=== PATIENT | female | born 1950 | race Caucasian/White ===

== ENCOUNTER 2016-09-15 10:15 | Emergency (ER) | payer BC ==
[2016-09-15 10:52] VITALS: BP 157/87
--- NOTE | 2016-09-15 16:29 | ER ---
HISTORY OF PRESENT ILLNESS: A 66-year-old lady here with complaints of injuring her right shoulder and right hip when she fell last night. She was outside on cement, walking her dog when she just tripped and fell on the cement. She scraped her knee, but she feels her knee is doing fine. Her right hip and right shoulder have been painful and it got worse overnight. The patient does take Ultram occasionally for arthritis-type pain, she has taken a couple of doses, but does not feel has helped a lot. She states she can still walk with pain and she has been able to do some activities with her shoulder, but it is painful. She is worried about a fracture. OBJECTIVE: GENERAL APPEARANCE: The patient is awake and alert, no obvious distress. VITAL SIGNS: Reviewed as listed. Blood pressure 157/87. She is afebrile. EXTREMITIES: Examining the patient's right knee reveals a small superficial abrasion just distal to the patella without any sign of infection. There is minimal discomfort with palpation of the knee. Examining the patient's right hip reveals tenderness localized over the greater trochanter area. The patient is able to stand and walk with a slight limp at this time. Examining the right shoulder reveals the skin is intact. No swelling or bruising. The area of pain is on the lateral aspect of the superior shoulder, going down into the deltoid muscle area. The patient has mild loss of function with lateral abduction, but tells me this usually does cause some pain for her. LABORATORY AND X-RAY DATA: X-ray of the right shoulder is obtained and is negative for fracture. X-ray of the right hip also was negative for fracture or acute bony abnormality. DIAGNOSIS: Contusion injuries to right hip and right shoulder. TREATMENT PLAN: I advised the patient that conservative measures will be used. Activity should be as tolerated. She is still working full-time, I advised her to try to take it easy for a couple of days if she can and she agrees. She is to continue with Ultram, she can take 2 tablets at h.s., otherwise 1 tablet every 6-8 hours during the day as needed and advised that she use some ibuprofen 400 mg 2-3 times a day for a few days with food. Followup should be in 1 week or so in the clinic if her symptoms are not improving. DANNY/MODL /[id number]
--- NOTE | 2016-09-15 21:09 | CR ---
DATE OF SERVICE: 09/15/2016 CLINICAL DATA: Fell. RIGHT HIP There are mild osteoarthritic changes of the right hip joint. No acute fracture or dislocation. No lytic or blastic bone lesions. There are surgical clips in the pelvis consistent with prior tubal ligation. There are calcifications in the pelvis that are most likely vascular. There is degenerative disc disease in the lower lumbar spine. [id number] [facility]
--- NOTE | 2016-09-15 21:11 | CR ---
DATE OF SERVICE: 09/15/2016 CLINICAL DATA: Fell. RIGHT SHOULDER There is diffuse osteopenia. There are osteoarthritic changes involving the AC joint. No acute fracture or dislocation. No focal lytic or blastic bone lesions. [id number] [facility]
== END 2016-09-15 11:22 | disposition home or self-care (01) ==
LOC: LB.ED 10:15
DX: S70.01XA Contusion of right hip, initial encounter (principal); S40.011A Contusion of right shoulder, initial encounter; W01.0XXA Fall on same level from slipping, tripping and stumbling without subsequent striking against object, initial encounter; M85.811 Other specified disorders of bone density and structure, right shoulder; M19.011 Primary osteoarthritis, right shoulder; M16.11 Unilateral primary osteoarthritis, right hip; M51.36 Other intervertebral disc degeneration, lumbar region
CPT/HCPCS: 73030-RT; 73502-RT; 99283

== ENCOUNTER 2019-03-04 18:49 | Emergency (ER) | payer MEDICARE, OTHER ==
--- NOTE | 2019-03-04 19:10 | EDM.PDOC ---
ED HPI GENERAL MEDICAL PROBLEM - General Chief Complaint: General Stated Complaint: RIGHT WRIST INJURY Time Seen by Provider: 03/04/19 19:05 Source of Information: Reports: Patient History Limitations: Reports: No Limitations - History of Present Illness INITIAL COMMENTS - FREE TEXT/NARRATIVE: This is a 68yo F here for a recent fall on the right wrist. She is having difficulty moving and has pain 8/10 on movement. Onset: Sudden Duration: Constant Location: Reports: Upper Extremity, Right Quality: Reports: Ache Severity: Moderate Improves with: Reports: None Worsens with: Reports: Movement Associated Symptoms: Reports: No Other Symptoms Right Wrist Pain Score (Numeric/FACES): 8 - Related Data Allergies Allergy/AdvReac Type Severity Reaction Status Date / Time codeine AdvReac Nausea Verified 03/04/19 19:12 sulfamethoxazole AdvReac Stomach Verified 03/04/19 19:12 [From Bactrim] Upset Home Meds: Home Meds Celecoxib [CeleBREX] 200 mg PO DAILY 03/27/13 [History] RX: Omeprazole 20 mg PO DAILY 03/27/13 [History] Simvastatin [Zocor] 40 mg PO BEDTIME 03/27/13 [History] Verapamil [Verapamil SR (24 Hr)] 360 mg PO DAILY 03/27/13 [History] Montelukast [Singulair] 10 mg PO DAILY 03/04/19 [History] Past Medical History HEENT History: Reports: Allergic Rhinitis, Sinusitis Respiratory History: Reports: Bronchitis, Recurrent, Pneumonia, Recurrent Gastrointestinal History: Reports: Colon Polyp, GERD Genitourinary History: Reports: UTI, Recurrent 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: Musculoskeletal History: Reports: Arthritis, Back Pain, Chronic, Neck Pain, Chronic Neurological History: Reports: Headaches, Chronic, Other (See Below) Other Neuro History: Pituitary Tumor Psychiatric History: Reports: Depression Endocrine/Metabolic History: Reports: Vitamin D Deficiency - Infectious Disease History Infectious Disease History: Reports: Chicken Pox, Influenza, Mumps, Pertussis ( Whooping Cough), Shingles - Past Surgical History Female Surgical History: Reports: Tubal Ligation Musculoskeletal Surgical History: Reports: Other (See Below) Other Musculoskeletal Surgeries/Procedures:: Right trigger finger surgery Social & Family History - Family History Family Medical History: Noncontributory ED ROS GENERAL - Review of Systems Review Of Systems: ROS reveals no pertinent complaints other than HPI. ED EXAM, GENERAL - Physical Exam Exam: See Below Exam Limited By: No Limitations General Appearance: Alert, WD/WN, Mild Distress Eye Exam: Bilateral Eye: EOMI, PERRL Ears: Normal External Exam Nose: Normal Inspection Throat/Mouth: Normal Inspection Head: Atraumatic, Normocephalic Neck: Normal Inspection Respiratory/Chest: No Respiratory Distress, Lungs Clear Cardiovascular: Normal Peripheral Pulses, Regular Rate, Rhythm Peripheral Pulses: 2+: Brachial (L), Brachial (R), Dorsalis Pedis (L), Dorsalis Pedis (R) GI/Abdominal: Normal Bowel Sounds Extremities: Arm Pain Neurological: Alert, Oriented, CN II-XII Intact Psychiatric: Normal Affect, Normal Mood Skin Exam: Warm, Dry, Intact Course - Vital Signs Last Recorded V/S: Last Vital Signs Temp 35.9 C 03/04/19 19:02 Pulse 87 03/04/19 19:02 Resp 16 03/04/19 19:02 BP 159/95 H 03/04/19 19:02 Pulse Ox 99 03/04/19 19:02 - Orders/Labs/Meds Meds: Medications Discontinued Medications Generic Name Dose Route Start Last Admin Trade Name Farhana PRN Reason Stop Dose Admin Tramadol HCl 500 mg 03/04/19 19:30 Ultram .ROUTE 03/04/19 19:31 .STK-MED ONE Departure - Departure Time of Disposition: 20:00 Disposition: Home, Self-Care 01 Condition: Fair Clinical Impression: Radius fracture Qualifiers: Encounter type: initial encounter Radius location: distal Fracture type: closed Fracture morphology: other fracture Laterality: right Qualified Code(s): S52.591A - Other fractures of lower end of right radius, initial encounter for closed fracture - Discharge Information Instructions: Cast or Splint Care, Adult, [id number], Wrist Fracture Treated With Immobilization, [id number] Referrals: PCP,None [Primary Care Provider] - Forms: ED Department Discharge Additional Instructions: Keep applied splint in place at all times. May apply ice to affected area intermittently to help with pain and swelling as well. 650mg Tylenol and/or 800mg Ibuprofen, alternating every 4 hours as needed for pain. May also take provided Tramadol as directed: 1 tablet by mouth every 4 hours as needed for pain. Follow up in clinic on Friday for casting of affected extremity. Call with any questions. - Problem List & Annotations (1) Radius fracture SNOMED Code(s): 65738645 Code(s): S52.90XA - UNSP FRACTURE OF UNSP FOREARM, INIT FOR CLOS FX Status : Acute Qualifiers: Encounter type: initial encounter Radius location: distal Fracture type: closed Fracture morphology: other fracture Laterality: right Qualified Code(s): S52.591A - Other fractures of lower end of right radius, initial encounter for closed fracture - Problem List Review Problem List Initiated/Reviewed/Updated: Yes - Assessment/Plan Plan: Counseled on use of brace at all times. Discussed icing and supportive care and f/u in clinic for casting. Discussed pain management and f/u as needed.
[2019-03-04 19:17] VITALS: BP 159/95; PULSE 87
[2019-03-04] MEDS ORDERED: traMADol 50 MG Tab ONE (19:30)
--- NOTE | 2019-03-05 09:56 | CR ---
DATE OF SERVICE: 03/04/19 CLINICAL DATA: fall RIGHT WRIST: Comparison is made to a prior exam dated 02/01/16. There is diffuse osteopenia. There is a mildly impacted, comminuted, intra-articular fracture through the distal radius. No other acute abnormalities. There are osteoarthritic changes involving multiple joints of the wrist. IMPRESSION: Acute distal radial fracture. [id number] [facility]
== END 2019-03-04 19:40 | disposition home or self-care (01) ==
LOC: LB.ED 18:49
DX: S52.591A Other fractures of lower end of right radius, initial encounter for closed fracture (principal); K21.9 Gastro-esophageal reflux disease without esophagitis; Z88.5 Allergy status to narcotic agent; Z88.1 Allergy status to other antibiotic agents; Z79.899 Other long term (current) drug therapy; W01.0XXA Fall on same level from slipping, tripping and stumbling without subsequent striking against object, initial encounter; Y93.01 Activity, walking, marching and hiking
CPT/HCPCS: 73110-RT; 99283; A9270-GY

== ENCOUNTER → 2019-04-01 | Outpatient (CLI) | payer MEDICARE, OTHER | LOC: LB.CLINIC 10:31 | PROVIDERS: ATTEND Nurse Practitioner Family | DX: E78.5 Hyperlipidemia, unspecified (principal) | CPT/HCPCS: 36415; 80061 ==

== ENCOUNTER 2019-05-05 15:59 | Emergency (ER) | payer MEDICARE, OTHER ==
[2019-05-05 16:26] VITALS: BP 172/92; PULSE 87
[2019-05-05] MEDS ORDERED: Ciprofloxacin 500 MG Tab ONE (16:30)
--- NOTE | 2019-05-05 18:26 | EDM.PDOC ---
ED HPI GENERAL MEDICAL PROBLEM - General Chief Complaint: Genitourinary Problem Stated Complaint: possible UTI Time Seen by Provider: 05/05/19 16:30 Source of Information: Reports: Patient History Limitations: Reports: No Limitations - History of Present Illness INITIAL COMMENTS - FREE TEXT/NARRATIVE: This is a 69yo F here for dysuria and frequency. She has had prior UTIs a long time ago. She denies any fever or chills, no flank pain or other concerns. Onset: Gradual Duration: Day(s): Severity: Mild UTI Pain Score (Numeric/FACES): 5 - Related Data Allergies Allergy/AdvReac Type Severity Reaction Status Date / Time codeine AdvReac Nausea Verified 05/05/19 16:36 sulfamethoxazole AdvReac Stomach Verified 05/05/19 16:36 [From Bactrim] Upset Home Meds: Home Meds Celecoxib [CeleBREX] 200 mg PO DAILY 03/27/13 [History] Omeprazole 20 mg PO DAILY 03/27/13 [History] Simvastatin [Zocor] 40 mg PO BEDTIME 03/27/13 [History] Verapamil [Verapamil SR (24 Hr)] 360 mg PO DAILY 03/27/13 [History] Montelukast [Singulair] 10 mg PO DAILY 03/04/19 [History] Past Medical History HEENT History: Reports: Allergic Rhinitis, Sinusitis Cardiovascular History: Reports: High Cholesterol Respiratory History: Reports: Bronchitis, Recurrent, Pneumonia, Recurrent Gastrointestinal History: Reports: Colon Polyp, GERD Genitourinary History: Reports: UTI, Recurrent 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: Musculoskeletal History: Reports: Arthritis, Back Pain, Chronic, Neck Pain, Chronic Neurological History: Reports: Headaches, Chronic, Other (See Below) Other Neuro History: Pituitary Tumor Psychiatric History: Reports: Depression Endocrine/Metabolic History: Reports: Vitamin D Deficiency - Infectious Disease History Infectious Disease History: Reports: Chicken Pox, Influenza, Mumps, Pertussis ( Whooping Cough), Shingles - Past Surgical History Female Surgical History: Reports: Tubal Ligation Musculoskeletal Surgical History: Reports: Other (See Below) Other Musculoskeletal Surgeries/Procedures:: Right trigger finger surgery Social & Family History - Family History Family Medical History: Noncontributory - Caffeine Use Caffeine Use: Reports: Coffee ED ROS GENERAL - Review of Systems Review Of Systems: Comprehensive ROS is negative, except as noted in HPI. ED EXAM, RENAL/ - Physical Exam Exam: See Below Exam Limited By: No Limitations General Appearance: Alert, WD/WN, No Apparent Distress Ears: Normal External Exam Head: Atraumatic, Normocephalic Neck: Normal Inspection Respiratory/Chest: No Respiratory Distress, Lungs Clear Cardiovascular: Normal Peripheral Pulses, Regular Rate, Rhythm GI/Abdominal: Normal Bowel Sounds Course - Vital Signs Last Recorded V/S: Last Vital Signs Temp 36.5 C 05/05/19 16:20 Pulse 87 05/05/19 16:20 Resp 16 05/05/19 16:20 BP 172/92 H 05/05/19 16:20 Pulse Ox 100 05/05/19 16:20 - Orders/Labs/Meds Orders: Active Orders 24 hr Category Date Time Status CULTURE URINE [RM] Stat Lab 05/05/19 16:09 Received Labs: Laboratory Tests 05/05/19 Range/Units 16:09 Urine Color Red Urine Appearance Slightly cloudy (CLEAR) Urine pH 5.5 (5.0-8.0) Ur Specific [place] <= 1.005 (1.003-1.030) Urine Protein 30 H (NEGATIVE) mg/dL Urine Glucose (UA) Negative (NEGATIVE) mg/dL Urine Ketones Negative (NEGATIVE) mg/dL Urine Occult Blood Large H (NEGATIVE) Urine Nitrite Negative (NEGATIVE) Urine Bilirubin Negative (NEGATIVE) Urine Urobilinogen 0.2 (0.2-1.0) E.U./dL Ur Leukocyte Esterase Moderate H (NEGATIVE) Urine RBC 10-20 H /HPF Urine WBC 50-75 H /HPF Urine WBC Clumps Moderate /HPF Ur Squamous Epith Cells Few /HPF Urine Bacteria Moderate H /HPF Departure - Departure Time of Disposition: 17:10 Disposition: Home, Self-Care 01 Condition: Good Clinical Impression: UTI, Urinary tract infectious disease - Discharge Information Instructions: Urinary Tract Infection, Adult, Ciprofloxacin tablets Referrals: PCP,None [Primary Care Provider] - Forms: ED Department Discharge Additional Instructions: Take your antibiotic as prescribed, Cipro for 3 days take it twice a day. Followup in the clinic or the ER as needed or if you have any questions. Sepsis Event Note - Evaluation Sepsis Screening Result: No Definite Risk - Focused Exam Vital Signs: Vital Signs Temp Pulse Resp BP Pulse Ox 05/05/19 16:20 36.5 C 87 16 172/92 H 100 Date Exam was Performed: 05/05/19 Time Exam was Performed: 18:24 - Problem List & Annotations (1) UTI, Urinary tract infectious disease SNOMED Code(s): 12913416 Code(s): N39.0 - URINARY TRACT INFECTION, SITE NOT SPECIFIED Status: Acute Priority: High - Problem List Review Problem List Initiated/Reviewed/Updated: Yes - My Orders Last 24 Hours: My Active Orders 05/05/19 16:09 CULTURE URINE [RM] Stat - Assessment/Plan Last 24 Hours: My Active Orders 05/05/19 16:09 CULTURE URINE [RM] Stat Plan: Counseled on antibiotics and side effects. Discussed close f/u and rtc or ER if symptoms persist or worsen. F/u as directed.
== END 2019-05-05 16:57 | disposition home or self-care (01) ==
LOC: LB.ED 15:59
DX: N39.0 Urinary tract infection, site not specified (principal); E78.00 Pure hypercholesterolemia, unspecified; K21.9 Gastro-esophageal reflux disease without esophagitis; M19.90 Unspecified osteoarthritis, unspecified site; F32.9 Major depressive disorder, single episode, unspecified; Z88.5 Allergy status to narcotic agent; Z88.2 Allergy status to sulfonamides; Z79.899 Other long term (current) drug therapy
CPT/HCPCS: 81001; 87086; 99283; A9270-GY

== ENCOUNTER 2021-12-14 15:56 | Emergency (ER) | payer MEDICARE ==
[2021-12-14 16:53] VITALS: BP 152/91; PULSE 89
== END 2021-12-14 17:00 | disposition home or self-care (01) ==
LOC: LB.ED 15:56
DX: S99.922A Unspecified injury of left foot, initial encounter (principal); K21.9 Gastro-esophageal reflux disease without esophagitis; Z88.2 Allergy status to sulfonamides; Z79.899 Other long term (current) drug therapy; W23.1XXA Caught, crushed, jammed, or pinched between stationary objects, initial encounter
CPT/HCPCS: 73660-T4; 99281; 99283